=== PATIENT | male | born 1985 | race Caucasian/White ===

== ENCOUNTER 2019-05-22 18:55 | Emergency (ER) | payer BC, OTHER ==
[2019-05-22 19:10] VITALS: BP 154/83; TEMP 97.6; O2SAT 97
--- NOTE | 2019-05-22 19:28 | ED.PDOC ---
History of Present Illness - General Chief Complaint: ENT Problem Stated Complaint: Left ear pain Time Seen by Provider: 05/22/19 19:12 Source: patient Exam Limitations: no limitations - History of Present Illness Initial Comments: Patient presents with left ear pain since yesterday. He was swimming at a pool and said he was trying to get water out of his ear. Since then, his ear has been aching and there is ringing in the ear. The pain radiates to his left cheek. No headache. No fever. No vision changes. No other complaints. Timing/Duration: 24 hours Severity: moderate Improving Factors: nothing Worsening Factors: nothing Associated Symptoms: denies symptoms Allergies/Adverse Reactions: Allergies Penicillins Allergy (Verified 08/30/14 04:50) Home Medications: Ambulatory Orders NK 05/22/19 Review of Systems - Review of Systems Constitutional: States: no symptoms reported EENTM: States: see HPI Respiratory: States: no symptoms reported Cardiology: States: no symptoms reported Gastrointestinal/Abdominal: States: no symptoms reported Genitourinary: States: no symptoms reported Musculoskeletal: States: no symptoms reported Skin: States: no symptoms reported Neurological: States: no symptoms reported Endocrine: States: no symptoms reported Past Medical History (General) - Patient Medical History Hx Asthma: Yes Hx Diabetes: No Hx Cancer: No Hx Hepatitis C: No - Vaccination History Hx Influenza Vaccination: No Immunizations Up to Date: Yes - Social History Hx Tobacco Use: Yes Hx Alcohol Use: No - Female History Patient : No - Triage Comment ED Triage Comment: Sudden onset of left ear pain while swimming Family Medical History - Family History Mother Family History: Unknown Physical Exam - Physical Exam General Appearance: Alert Eye Exam: bilateral normal Ears, Nose, Throat: other - right TM is clear, malleus visible. Left is cerumen occluded. There is erythema on the inferior surface of the external auditory canal. Neck: non-tender, full range of motion, supple Respiratory: lungs clear, normal breath sounds Cardiovascular/Chest: normal peripheral pulses, regular rate, rhythm Gastrointestinal/Abdominal: normal bowel sounds, non tender, soft Progress - Progress Progress: 05/22/19 20:07 Left ear was irrigated. Small amount of cerumen removed with ear curette. There was greenish purulence in the cerumen. Cortisporin otic drops applied. Care instructions given. E.R. warnings given. Questions were elicited and answered. Patient voiced understanding and agreement with the plan. Departure - Departure Clinical Impression: Otitis externa Disposition: Discharge to Home or Self Care Condition: Good Departure Forms: ED Discharge - Pt. Copy, Patient Portal Self Enrollment Instructions: DI for Otitis Externa Diet: resume usual diet Activity: increase activity as tolerated Home Medications: Ambulatory Orders NK 05/22/19 Additional Instructions: Put four drops of the ear drops in the left ear four times per day for 7 days. Lie with the left ear up for 5 minutes after applying the drop. In one to two weeks, start using Debrox as instructed on the box. You can find Debrox at any pharmacy. Ibuprofen as directed for extra pain control if needed.
[2019-05-22] MEDS ORDERED: LIDOCAINE HCL 2% (MOUTH-THROAT) 15 ML UD ONE (19:48)
[2019-05-22] MEDS ORDERED: NEO/POLY/HC OTIC SUSP 10 ML BTTL ONE (19:49)
== END 2019-05-22 20:20 | disposition home or self-care (01) ==
LOC: ER 18:55
DX: H60.92 Unspecified otitis externa, left ear (principal); H61.22 Impacted cerumen, left ear; J45.909 Unspecified asthma, uncomplicated; Z87.891 Personal history of nicotine dependence; Z88.0 Allergy status to penicillin

== ENCOUNTER → 2020-05-16 | Outpatient (CLI) | payer OTHER | LOC: YCFC.O 11:19 | PROVIDERS: ATTEND Family Medicine | DX: Z20.828 Contact with and (suspected) exposure to other viral communicable diseases (principal) ==